=== PATIENT | male | born 1980 | race Caucasian/White ===

== ENCOUNTER 2022-05-17 15:37 | Inpatient (IN) ==
[2022-05-17] MEDS ORDERED: IOPAMIDOL 100 ML BOTTLE IV ONE (15:38)
[2022-05-17] MEDS ORDERED: 0.9 % SODIUM CHLORIDE 1,000 ML IV ONE (16:03)
--- NOTE | 2022-05-17 16:18 | Emergency Department Note ---
Skin/Abscess/FB HPI General Chief complaint: Skin/Abscess/Rash Stated complaint: Ultrasound Time Seen by Provider: 05/17/22 15:55 Source: patient Mode of arrival: ambulatory Limitations: no limitations History of Present Illness HPI Narrative: Thomas Brown is a 41-year-old male who presents to the emergency department at the direction of [facility] for evaluation of "a cyst" on his scrotum. The patient reports he noticed an area of tenderness, swelling, and induration about the size of a golf ball yesterday. He reports this woke him from sleep and made returning to sleep difficult due to pain. He denies fevers, however states he felt chilled overnight last night. No sweating. No fatigue or malaise. P atient denies recent trauma to the area, surgery, history of diabetes. He reports he is awaiting his upcoming gastric bypass surgery. He denies all other acute complaints at this time. Related Data Previous Rx's Medication Instructions Recorded CPAP supplies-mask, hosing, #1 ea 12/06/21 headgear methylphenidate HCl 20 mg tablet 40 mg PO QAM #60 tabs 04/01/22 methylphenidate HCl 40 mg 40 mg PO QAM #30 caps 05/01/22 capsule,extended release (40-60) sprinkle Allergies Allergy/AdvReac Type Severity Reaction Status Date / Time morphine Allergy Severe Drastic Verified 05/17/22 15:42 lowering of oxygen level NO NSAIDS AdvReac upcoming Uncoded 05/17/22 15:16 surgery Review of Systems ROS ROS Narrative: A comprehensive review of systems is obtained and found to be negative, except as per HPI. PFSH Narrative Patient History Narrative: Narrative: Medical/Surgical/Family History All Active Problems (Updated 05/17/22 @ 20:41 by Manuela Aragon PA-C) Seasonal allergies (Chronic) Obese (Chronic) Back problem (Chronic) Morbid obesity with BMI of 50.0-59.9, adult (Chronic) Chronic low back pain (Chronic) Spinal stenosis, lumbar region without neurogenic claudication (Chronic) Chronic pain (Chronic) Spondylolisthesis, lumbar region (Chronic) Spondylolysis, lumbar region (Chronic) Right sided sciatica (Chronic) Leg pain (Chronic) Craniosynostoses (Chronic) Environmental allergies (Chronic) Hematuria (Chronic) Hypothyroidism (Chronic) Migraine (Chronic) Other low back pain (Chronic) Other chronic pain (Chronic) Sleep apnea (Chronic) ADHD (Acute) Lumbar radiculopathy (Chronic) Disability (Acute) Onychomycosis (Acute) Callus of foot (Acute) Pre-op examination (Acute) Cellulitis, scrotum (Acute) 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) Medical History ADHD Back problem Callus of foot Chronic low back pain Right-Sided Chronic pain Craniosynostoses Disability Environmental allergies Hematuria Hypothyroidism Leg pain Right Lumbar radiculopathy Migraine Morbid obesity with BMI of 50.0-59.9, adult Obese Onychomycosis Other chronic pain Other low back pain Pre-op examination Right sided sciatica Seasonal allergies Sleep apnea Spinal stenosis, lumbar region without neurogenic claudication Spondylolisthesis, lumbar region Spondylolysis, lumbar region Surgical History History of cranial surgery x4 History of hernia repair (~2012) History of removal of cyst (~2003) Family History Mother Hypertension Arthritis Father Cancer Family/Other Cancer Grandparent Brother Chronic pain Alcohol abuse Social History Smoking Status: Never smoker Alcohol Intake Frequency: a few times a month Substance Use: does not use Exam Narrative Narrative: General: Alert, pleasant, conversant, NAD HEENT: Mask in place per COVID protocol, EOMI, PERRL, anicteric sclerae Chest/respiratory: Symmetric chest wall expansion, adequate tidal volume and respiratory effort, speaks in complete paragraphs without difficulty CV: Cap refill less than 2 seconds; palpable peripheral pulses Abdomen/GI: Soft, protuberant, NT/ND Extremities/MSK: MAEW, normal gait Skin: Normal warm and dry, no jaundice Urogenital: No apparent lesions, at the perineum and scrotum, there is an area of erythema, induration, swelling, and tenderness measuring approximately 4.5 cm x 12 cm progressing from the perineum into the scrotum General Limitations: no limitations Course Vital Signs Vital signs: Vital Signs Temperature 98.6 F 05/17/22 15:39 Pulse Rate 95 H 05/17/22 15:39 Respiratory Rate 16 05/17/22 15:39 Blood Pressure 160/107 05/17/22 15:39 Pulse Oximetry (%) 96 05/17/22 15:39 Oxygen Delivery Method 05/17/22 15:39 Temperature 98.6 F 05/17/22 15:39 Pulse Rate 89 05/17/22 20:01 Respiratory Rate 18 05/17/22 18:39 Blood Pressure 128/57 05/17/22 20:01 Pulse Oximetry (%) 99 05/17/22 20:01 Oxygen Delivery Method 05/17/22 18:39 MDM MDM Narrative Medical decision making narrative: Thomas Brown is a 41-year-old male who presents to the emergency department for evaluation of a "cyst" that he reports is roughly the size of a golf ball when he noticed it yesterday. Pain awoke him from sleep overnight and he felt chilled, though he had no measured fevers. He was seen today in urgent care and provider Lynda Villa sent him to the emergency department for further evaluation and management. On exam, there is an area of erythema, induration, swelling, and tenderness that is considerably larger than a roughly 3.5 cm diameter golf ball, at approximately 4.5 cm x 12 cm. Given location of this area of swelling, tenderness, and pain that is significantly larger than what was originally noticed, along with the patient's risk factor of obesity, work-up is initiated for sepsis and Marnie's gangrene. IV fluids are initiated early as contrast CT is required to evaluate the soft tissues of the pelvis. Labs are reassuring. White blood cell count is 10.2, H&H 16.2 and 49.9, respec tively, platelet count 303. Lactic acid is within reference range at 0.7. Sodium is 140, potassium 4.1, chloride is 103, total CO2 is 27.0, BUN is 17, creatinine is 0.8 and glucose is 99. Results of imaging were delayed for a prolonged period of time, and as such IV antibiotics were started prior to return of these results, following a discussion with the patient of the risks and benefits of IV antibiotic therapy versus waiting to initiate antibiotic therapy. This included vancomycin 2 g and 900 mg clindamycin, administered IV. Consultation was sought with urology at approximately; Dr Trevino of the urology service was kind enough to return my call and allow me to consult with him throughout the patient's time in the emergency department. Upon return of imaging, Dr. Trevino comes into the emergency department to evaluate the patient and agrees with the assessment that the patient needs to be treated presumptively for Marnie's gangrene. While Dr. Trevino is in the emergency department, Dr Phelan from [facility] returns my call to discuss the patient's imaging exam at 1943. The first set of images have an impression stating "partially visualized soft tissue thickening in the perineum and extends to the scrotal wall without fluid collection may represent cellulitis. No acute intra-abdominal or pelvic abnormality." The second read with additional images included have an impression that reads "a small fluid collection in the left perineum measuring 7.3 x 2.7 x 2.3 cm (AP by transverse by coronal dimensions), extends to the left scrotal wall and contains a focus of gas consistent with phlegmon/early abscess formation." Following his examination of the patient, Dr. Trevino and I discussed the patient's case at length. It is agreed that admission for IV antibiotics is the best course of action for this patient. This is additionally discussed with the patient, including risks and benefits of hospitalization, IV antibiotic therapy, and outpatient therapy. Using a shared decision-making process, it is agreed that the patient will be admitted by the hospitalist service with Dr. Trevino of the urology service consulting. Dr. Steve of the hospitalist service accepts the patient for admission at 2019. Sepsis Sepsis Identified: No Differential Diagnosis Differential Diagnosis: cellulitis, abscess, Marnie's gangrene Lab Data Lab results reviewed: Yes I reviewed the patient's lab results. Result diagrams: 05/17/22 16:20 Labs: Lab Results 05/17/22 05/17/22 05/17/22 Range/Units 16:20 16:21 16:21 WBC 10.2 (4.5-11.0) K/mcL RBC 5.57 (4.63-6.08) M/mcL Hgb 16.2 (13.7-17.5) g/dL Hct 49.9 (40.1-51.0) % POC Hct 50.0 (41-55) MCV 89.6 (80.0-100.0) fL MCH 29.1 (26.0-34.0) pg MCHC 32.5 (31.0-36.0) g/dL RDW 13.3 (11.5-14.5) % Plt Count 303 (140-440) K/mcL MPV 10.3 (8.8-12.5) fL Immature Gran % (Auto) 0.2 (0.0-0.5) % Neut % (Auto) 66.3 (38.0-78.0) % Lymph % (Auto) 24.6 (15.5-49.0) % [place] % (Auto) 6.7 (1.0-12.0) % Eos % (Auto) 1.6 (0.0-7.0) % Baso % (Auto) 0.6 (0.0-2.0) % Lymph # (Auto) 2.51 (1.50-4.80) K/mcL [place] # (Auto) 0.68 (0.10-0.90) K/mcL Eos # (Auto) 0.16 (0.00-0.70) K/mcL Baso # (Auto) 0.06 (0.00-0.30) K/mcL Immature Gran # 0.02 (0.00-0.05) K/mcl Absolute Neutrophils 6.78 (1.80-8.00) K/mcL POC VBG pH 7.39 (7.32-7.42) POC VBG pCO2 at Temp 47.9 (41-51) POC VBG pO2 22 L (25-40) POC VBG HCO3 28.8 H (24-28) POC VBG Total CO2 30.0 H (25-29) POC Venous O2 Sat 36.0 L (40-70) POC VBG Base Excess 4.0 H* (-2-2) VBG Lactic Acid 0.7 (0.5-2) POC Sodium 140 (133-145) POC Potassium 4.1 (3.3-5.1) POC Chloride 103 (96-108) POC Total CO2 27.0 (22-30) POC BUN 17 (6-20) POC Creatinine 0.8 (0.6-1.2) POC Glucose 99 (70-105) POC WB Ioniz Calcium 1.15 L (1.16-1.32) Radiology Data Radiology results reviewed: Yes I reviewed the patient's radiology results. Radiology results narrative: Extensive consultation with radiology was undertaken on behalf of this patient, throughout the course of his care. [facility] provides the following impression: A small fluid collection in the left perineum measuring 7.3 x 2.7 x 2.3 cm (AP by TRV by CC) extends to the left scrotal wall and contains a focus of gas consistent with phlegmon/early abscess formation. 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
[2022-05-17 16:26] LABS: POC Calcium, Ionized 1.15 (1.16-1.32); POC Creatinine 0.8 (0.6-1.2); POC Potassium 4.1 (3.3-5.1)
[2022-05-17 17:33] LABS: Basophils # (Auto) 0.06 K/mcL (0.00-0.30); Basophils % (Auto) 0.6 % (0.0-2.0); Eosinophils # (Auto) 0.16 K/mcL (0.00-0.70); Eosinophils % (Auto) 1.6 % (0.0-7.0); Hematocrit 49.9 % (40.1-51.0); Hemoglobin 16.2 g/dL (13.7-17.5); Lymphocytes # (Auto) 2.51 K/mcL (1.50-4.80); Lymphocytes % (Auto) 24.6 % (15.5-49.0); Mean Cell Volume 89.6 fL (80.0-100.0); Mean Corpuscular HGB Conc 32.5 g/dL (31.0-36.0); Mean Platelet Volume 10.3 fL (8.8-12.5); Monocytes # (Auto) 0.68 K/mcL (0.10-0.90); Monocytes % (Auto) 6.7 % (1.0-12.0); Neutrophils % (Auto) 66.3 % (38.0-78.0); Platelet Count 303 K/mcL (140-440); RBC 5.57 M/mcL (4.63-6.08); Red Cell Distribution Width 13.3 % (11.5-14.5); WBC 10.2 K/mcL (4.5-11.0)
[2022-05-17] MEDS ORDERED: VANCOMYCIN 2,000 MG in 0.9 % SODIUM CHLORIDE 500 ML IV ONE (18:01)
[2022-05-17] MEDS ORDERED: CLINDAMYCIN IN 0.9 % SOD CHLOR 900 MG/50 ML BAG IV ONE (18:02)
--- NOTE | 2022-05-17 20:18 | Urology Consult Note ---
HPI Date of Consult Consult Date: 05/17/22 Primary Care Provider: Siddharth Muhammad MD Consult Narrative Patient Information: Note initiated : 05/17/22 at 8:04 pm Service Date, if different from initiated Date: [] Patient: Thomas Brown 41 y/o M admitted on for Ultrasound. Chief Complaint: [] Scrotal swelling and pain Thomas Brown is a 41-year-old male who presented to the emergency room after being seen in the urgent care earlier today. He has been evaluated by the emergency room medical staff and urologic consultation has been requested. He is accompanied this evening by his . Patient states that last evening he noticed some swelling of the posterior left scrotum. He states the swelling was separate from the testicle and appeared to be in the skin of the scrotum. He did have some mild chills over the last couple of days, but denies any fevers. He has had no nausea, vomiting, abdominal pain, change in bowels (had normal bowel movement yesterday), difficulty with urination, dysuria or hematuria. Patient states he otherwise feels quite well and in his normal state of health. He states the swelling has slightly increased from yesterday. He has had no prior similar episodes. Apparently, at the urgent care they had recommended doing an ultrasound on Thursday, patient decided to come to the emergency room to see if he can get further evaluation. He has had blood work and a CT scan completed. Patient states he is scheduled for bariatric surgery in approximately 1 month cc:: CC: Constitutional Constitutional: Present as per HPI and chills; Absent anorexia, fatigue, fever(s), headache(s) or weakness EENT Eyes: Absent change in vision Ears: Absent decreased hearing Nose, mouth and throat: Absent throat swelling Cardiovascular Cardiovascular: Absent chest pain, diaphoresis or dyspnea Respiratory Respiratory: Absent cough or dyspnea Gastrointestinal Gastrointestinal: Present as per HPI; Absent abdominal pain, constipation, nausea or vomiting Genitourinary Genitourinary: as per HPI Musculoskeletal Musculoskeletal: Absent muscle weakness Integumentary Integumentary: Absent rash Neurological Neurological: Absent headache(s) Endocrine Endocrine: Absent fatigue, polyphagia or polyuria Hematologic/Lymphatic Hematologic/Lymphatic: Absent easy bleeding or easy bruising PFSH PFSH All Active Problems (Updated 05/17/22 @ 20:15 by Ronny Trevino MD) Cellulitis, scrotum (Acute) Seasonal allergies (Chronic) Obese (Chronic) Back problem (Chronic) Morbid obesity with BMI of 50.0-59.9, adult (Chronic) Chronic low back pain (Chronic) Spinal stenosis, lumbar region without neurogenic claudication (Chronic) Chronic pain (Chronic) Spondylolisthesis, lumbar region (Chronic) Spondylolysis, lumbar region (Chronic) Right sided sciatica (Chronic) Leg pain (Chronic) Craniosynostoses (Chronic) Environmental allergies (Chronic) Hematuria (Chronic) Hypothyroidism (Chronic) Migraine (Chronic) Other low back pain (Chronic) Other chronic pain (Chronic) Sleep apnea (Chronic) ADHD (Acute) Lumbar radiculopathy (Chronic) Disability (Acute) Onychomycosis (Acute) Callus of foot (Acute) Pre-op examination (Acute) Medical History ADHD Back problem Callus of foot Chronic low back pain Right-Sided Chronic pain Craniosynostoses Disability Environmental allergies Hematuria Hypothyroidism Leg pain Right Lumbar radiculopathy Migraine Morbid obesity with BMI of 50.0-59.9, adult Obese Onychomycosis Other chronic pain Other low back pain Pre-op examination Right sided sciatica Seasonal allergies Sleep apnea Spinal stenosis, lumbar region without neurogenic claudication Spondylolisthesis, lumbar region Spondylolysis, lumbar region Surgical History History of cranial surgery x4 History of hernia repair (~2012) History of removal of cyst (~2003) Family History Mother Hypertension Arthritis Father Cancer Family/Other Cancer Grandparent Brother Chronic pain Alcohol abuse Social History marital status: education level: college occupational status: disabled occupation: [employer] smoking status: Never smoker alcohol intake frequency: a few times a month substance use type: does not use MEDS/ALLERGIES Home Medications and Allergies Home Medications Medication Instructions Recorded Confirmed Type CPAP supplies-mask, hosing, #1 ea 12/06/21 05/17/22 Rx headgear methylphenidate HCl 20 mg tablet 40 mg PO QAM #60 tabs 04/01/22 05/17/22 Rx methylphenidate HCl 40 mg 40 mg PO QAM #30 caps 05/01/22 05/17/22 Rx capsule,extended release (40-60) sprinkle Allergies Allergy/AdvReac Type Severity Reaction Status Date / Time morphine Allergy Severe Drastic Verified 05/17/22 15:42 lowering of oxygen level NO NSAIDS AdvReac upcoming Uncoded 05/17/22 15:16 surgery Physical Examination Vital Signs Vital signs: Temp Pulse Resp BP Pulse Ox O2 Del Method 98.6 F 86 18 117/74 96 05/17/22 15:39 05/17/22 19:31 05/17/22 18:39 05/17/22 19:31 05/17/22 19:31 05/17/22 18:39 General physical appearance General physical exam: well developed, well nourished, no distress and obese Eyes Eye exam: PERRL and normal ocular movement ENT ENT exam: negative nasal discharge Head Head exam IM: Present atraumatic Neck Neck exam: no lymphadenopathy Respiratory Respiratory exam: normal respiratory effort Abdomen Abdomen: Present soft, non tender and masses; Absent guarding, rigid or rebound Hernia: Present none Genitourinary Genitourinary (Male): Present normal penis with no external lesions, testicles present and testicles non-tender Genitourinary: scrotal mass/hydrocele: left (Induration of the posterior scrotal wall, erythema, no fluctuance, no drainage ) Integumentary Integumentary: Present no rash Neurologic Neurologic: Present normal coordination Musculoskeletal Musculoskeletal: Present normal posture Psychiatric Psychiatric: Present oriented to time, oriented to person, oriented to place and speech is normal Results Labs Result diagrams: 05/17/22 16:20 Labs: Abnormal lab results 05/17/22 05/17/22 Range/Units 16:21 16:21 POC VBG pO2 22 L (25-40) POC VBG HCO3 28.8 H (24-28) POC VBG Total CO2 30.0 H (25-29) POC Venous O2 Sat 36.0 L (40-70) POC VBG Base Excess 4.0 H* (-2-2) POC WB Ioniz Calcium 1.15 L (1.16-1.32) All other labs normal. Imaging CT scan - abdomen: report reviewed and image reviewed US - pelvic: report reviewed and image reviewed A/P Assessment and plan (1) Morbid obesity with BMI of 50.0-59.9, adult: Status: Chronic (2) Cellulitis, scrotum: Status: Acute Narrative A/P Narrative: 41-year-old obese male with left-sided scrotal cellulitis and possible early phlegmon formation. There is no palpable area of fluctuance. Patient's vital signs are stable, and laboratory work looks good. It Recommendation to admit the patient treated with IV antibiotics, monitor vital signs and laboratory work, serial exam. I will plan to see the patient in the morning to reevaluate the need for surgery. I had an extended conversation with both the patient and his indicating to them the seriousness of the patient's condition but at this time find no indication for surgical intervention. I will continue to follow as clinically indicated during this hospitalization. I appreciate the opportunity to participate in the patient's care. Time Spent With Patient Time: Total time spent is greater than 50% in coordination of care (as documented) at patient's floor/unit and/or counseling patient:
--- NOTE | 2022-05-17 20:38 | Internal Med History&Physical ---
HPI History of Present Illness Patient information: Note initiated : 05/17/22 at 8:32 pm Service Date, if different from initiated Date: [] Patient: Thomas Brown a 41 y/o M admitted on for Ultrasound. Chief Complaint: [] History of present illness: Mr. Brown is a 41 year old M Presents the ED with scrotal pain and swelling. Patient states that he felt a mass in the left side of his scrotum several days ago that has enlarged and become significantly tender. Even just today says it is a large difference in size from this morning to this evening. He went into minor care but they are unable to do any imaging and thus came over to ED. Patient denies any trauma or injury to the region. Imaging showed appear to be scrotal abscess cellulitis think in appearance of necrotizing fasciitis in the perineum. Case discussed with Dr. Trevino who examined the patient. Patient states he has had significant chills the past 3 nights which is quite unusual for him. He complains of headache. No nausea vomiting. Labs are surprisingly unremarkable at this time. Patient is scheduled to have bariatric surgery in the next month or so. Review of Systems: Pertinent positives as above. Denies fever//nausea/vomiting/chest or abdominal pain/cough/dyspnea/diarrhea. Remaining 10 point review of system reviewed negative PFSH PFSH All Active Problems (Updated 05/17/22 @ 20:41 by Manuela Aragon PA-C) Seasonal allergies (Chronic) Obese (Chronic) Back problem (Chronic) Morbid obesity with BMI of 50.0-59.9, adult (Chronic) Chronic low back pain (Chronic) Spinal stenosis, lumbar region without neurogenic claudication (Chronic) Chronic pain (Chronic) Spondylolisthesis, lumbar region (Chronic) Spondylolysis, lumbar region (Chronic) Right sided sciatica (Chronic) Leg pain (Chronic) Craniosynostoses (Chronic) Environmental allergies (Chronic) Hematuria (Chronic) Hypothyroidism (Chronic) Migraine (Chronic) Other low back pain (Chronic) Other chronic pain (Chronic) Sleep apnea (Chronic) ADHD (Acute) Lumbar radiculopathy (Chronic) Disability (Acute) Onychomycosis (Acute) Callus of foot (Acute) Pre-op examination (Acute) Cellulitis, scrotum (Acute) 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) Medical History ADHD Back problem Callus of foot Chronic low back pain Right-Sided Chronic pain Craniosynostoses Disability Environmental allergies Hematuria Hypothyroidism Leg pain Right Lumbar radiculopathy Migraine Morbid obesity with BMI of 50.0-59.9, adult Obese Onychomycosis Other chronic pain Other low back pain Pre-op examination Right sided sciatica Seasonal allergies Sleep apnea Spinal stenosis, lumbar region without neurogenic claudication Spondylolisthesis, lumbar region Spondylolysis, lumbar region Surgical History History of cranial surgery x4 History of hernia repair (~2012) History of removal of cyst (~2003) Family History Mother Hypertension Arthritis Father Cancer Family/Other Cancer Grandparent Brother Chronic pain Alcohol abuse Social History marital status: education level: college occupational status: disabled occupation: [employer] smoking status: Never smoker alcohol intake frequency: a few times a month substance use type: does not use MEDS/ALLERGIES Home Medications and Allergies Home Medications Medication Instructions Recorded Confirmed Type CPAP supplies-mask, hosing, #1 ea 12/06/21 05/17/22 Rx headgear methylphenidate HCl 20 mg tablet 40 mg PO QAM #60 tabs 04/01/22 05/17/22 Rx methylphenidate HCl 40 mg 40 mg PO QAM #30 caps 05/01/22 05/17/22 Rx capsule,extended release (40-60) sprinkle Allergies Allergy/AdvReac Type Severity Reaction Status Date / Time morphine Allergy Severe Drastic Verified 05/17/22 15:42 lowering of oxygen level NO NSAIDS AdvReac upcoming Uncoded 05/17/22 15:16 surgery EXAM Constitutional Vitals: Temp Pulse Resp BP Pulse Ox O2 Del Method 98.6 F 93 H 18 146/60 97 05/17/22 15:39 05/17/22 20:16 05/17/22 18:39 05/17/22 20:16 05/17/22 20:16 05/17/22 18:39 Exam: General: Alert, Awake, No acute Distress, obese Eyes/N/T: EOMI, PERRL, Head/Neck: neck supple, normocephalic atraumatic CV: RRR, No murmurs, normal s1/s2 Pulm: Clear b/l, no wheezing/rhonchi/rales Abd: soft, nontender, +BS x4 Ext: no clubbing/cyanosis/edema : scrotal swelling/erythema/induration/TTP left side Neuro: Alert, no focal deficits, moves all extremities, CN 2-12 grossly intact, sensations intact b/l upper/lower Skin: warm/dry DATA Data Completed and Pending Labs: Labs from last 24 hours 05/17/22 05/17/22 05/17/22 16:21 16:21 16:20 WBC 10.2 RBC 5.57 Hgb 16.2 Hct 49.9 POC Hct 50.0 MCV 89.6 MCH 29.1 MCHC 32.5 RDW 13.3 Plt Count 303 MPV 10.3 Immature Gran % (Auto) 0.2 Neut % (Auto) 66.3 Lymph % (Auto) 24.6 [place] % (Auto) 6.7 Eos % (Auto) 1.6 Baso % (Auto) 0.6 Lymph # (Auto) 2.51 [place] # (Auto) 0.68 Eos # (Auto) 0.16 Baso # (Auto) 0.06 Immature Gran # 0.02 Absolute Neutrophils 6.78 POC VBG pH 7.39 POC VBG pCO2 at Temp 47.9 POC VBG pO2 22 L POC VBG HCO3 28.8 H POC VBG Total CO2 30.0 H POC Venous O2 Sat 36.0 L POC VBG Base Excess 4.0 H* VBG Lactic Acid 0.7 POC Sodium 140 POC Potassium 4.1 POC Chloride 103 POC Total CO2 27.0 POC BUN 17 POC Creatinine 0.8 POC Glucose 99 POC WB Ioniz Calcium 1.15 L A/P Narrative A/P Narrative: A: *Scrotal abscess and early Marnie's: * *Morbid obesity: Patient scheduled for bariatric surgery in the next couple months *TATUM on CPAP: * P: -merrem/vanco/clinda, mrsa screen -BC pending -monitor vitals/labs -Dr. Trevino following - -home cpap - -ppx: heparin Time Spent With Patient Time: Total time spent is greater than 50% in coordination of care (as documented) at patient's floor/unit and/or counseling patient: Total time spent with greater than 50% in coordination of care (as documented) at patient's floor/unit and/or counseling patient:: 50 - 70 minutes
[2022-05-17] MEDS ORDERED: POTASSIUM CHLORIDE 20 MEQ TABLET PO PRN ×2 (22:11)
[2022-05-17] MEDS ORDERED: VANCOMYCIN PER PHARMACY IV ONE (22:11)
[2022-05-17] MEDS ORDERED: ONDANSETRON 4 MG/2 ML VIAL IV PRN (22:11)
[2022-05-17] MEDS ORDERED: MAGNESIUM SULFATE 2 GM/50 ML BAG IV PRN (22:11)
[2022-05-17] MEDS ORDERED: POLYETHYLENE GLYCOL 3350 17 GM PACKET PO PRN (22:11)
[2022-05-17] MEDS ORDERED: POTASSIUM CHLORIDE 40 MEQ in DEXTROSE 5% IN WATER 500 ML IV PRN (22:11)
[2022-05-17] MEDS ORDERED: ACETAMINOPHEN 325 MG TABLET PO PRN (22:11)
[2022-05-17] MEDS ORDERED: SENNOSIDES 1 TABLET PO PRN (22:11)
[2022-05-17] MEDS: DOCUSATE SODIUM 100 MG CAPSULE PO SCH (23:45)
[2022-05-17] MEDS: 0.9 % SODIUM CHLORIDE 10 ML SYRINGE IV SCH (23:46)
[2022-05-17] MEDS ORDERED: HEPARIN 5,000 UNIT/ML VIAL ONE (23:46)
[2022-05-17] MEDS: CLINDAMYCIN IN 0.9 % SOD CHLOR 600 MG/50 ML BAG IV SCH (23:48)
[2022-05-18] MEDS: HEPARIN 5,000 UNIT/ML VIAL SQ SCH ×3 (00:40→21:48)
[2022-05-18] MEDS: MEROPENEM 1 GM in 0.9 % SODIUM CHLORIDE 50 ML IV SCH ×4 (00:41→21:49)
[2022-05-18] MEDS ORDERED: ACETAMINOPHEN 325 MG TABLET PO ONE (04:45)
[2022-05-18] MEDS: 0.9 % SODIUM CHLORIDE 10 ML SYRINGE IV SCH ×3 (06:14→21:50)
[2022-05-18 06:27] LABS: Basophils # (Auto) 0.04 K/mcL (0.00-0.30); Basophils % (Auto) 0.4 % (0.0-2.0); Eosinophils # (Auto) 0.19 K/mcL (0.00-0.70); Eosinophils % (Auto) 1.8 % (0.0-7.0); Hematocrit 46.5 % (40.1-51.0); Lymphocytes % (Auto) 25.2 % (15.5-49.0); Mean Cell Volume 90.3 fL (80.0-100.0); Mean Corpuscular HGB Conc 32.3 g/dL (31.0-36.0); Mean Platelet Volume 9.9 fL (8.8-12.5); Monocytes # (Auto) 0.88 K/mcL (0.10-0.90); Monocytes % (Auto) 8.5 % (1.0-12.0); Neutrophils % (Auto) 63.7 % (38.0-78.0); Platelet Count 276 K/mcL (140-440); RBC 5.15 M/mcL (4.63-6.08); Red Cell Distribution Width 13.2 % (11.5-14.5); WBC 10.3 K/mcL (4.5-11.0)
[2022-05-18 06:54] LABS: ALT/SGPT 9 U/L (<40); AST/SGOT 10 U/L (<40); Albumin 3.4 gm/dL (3.2-5.2); Alkaline Phosphatase 80 U/L (39-117); Bilirubin,Direct < 0.2 mg/dL (0-0.3); Bilirubin,Total 0.6 mg/dL (0.1-1.0); Blood Urea Nitrogen 13 mg/dL (6-20); Calcium 8.5 mg/dL (8.6-10.4); Carbon Dioxide 27 mmol/L (22-30); Chloride 102 mmol/L (96-108); Globulin 3.4 gm/dL (2.2-3.7); Glomerular Filtration Rate 109; Glucose 99 mg/dL (70-105); Lactate Dehydrogenase 165 U/L (135-225); Phosphorous 3.1 mg/dL (2.5-4.5); Triglycerides 130 mg/dL (<150); Uric Acid 5.3 mg/dL (2.5-8.0)
[2022-05-18] MEDS: CLINDAMYCIN IN 0.9 % SOD CHLOR 600 MG/50 ML BAG IV SCH ×3 (07:05→22:36)
--- NOTE | 2022-05-18 07:43 | Cat Scan Report ---
CLINICAL INFORMATION: Scrotal inflammation and pain COMPARISON: None. TECHNIQUE: Following enteric contrast, 80 cc of Isovue-370 were injected intravenously, and 60 seconds later, 0.625 mm helical slices were obtained from the mid heart through the subtrochanteric regions. Following reconstruction, 2.5 mm sagittal, coronal and axial reformatted images were processed and reviewed at bone, lung and soft tissue windows. Five minutes later, 0.625 mm helical slices were obtained from the mid heart through the kidneys and viewed at soft tissue windows.The exam was performed using radiation dose optimization techniques including, but not limited to, automated exposure control, adjustment of the mA and/or kV according to patient size and use of iterative reconstruction technique. FINDINGS: The lung bases are clear. No effusions. The visualized heart is grossly normal. Abdominal images show the gallbladder and bile ducts, liver, both kidneys, adrenal glands, spleen, pancreas and aorta, including aortic branches, are normal in size, configuration and attenuation without focal lesion. There is no free air, free fluid or adenopathy. Pelvic images show normal urinary bladder, prostate and seminal vesicles.. The stomach, small bowel, appendix region and large bowel are grossly normal. 5 x 2 cm abscess in the superior left scrotum with a very tiny air bubble in the nondependent region. Moderate inflammation is seen throughout the remaining scrotal soft tissues Bone windows bilateral L5-S1 spondylolysis no evidence of spondylolisthesis. Large broad disc spur complex results in severe bilateral IV foraminal narrowing and exiting L5 nerve root impingement. IMPRESSION: 5 cm abscess in the inferior left scrotal soft tissues with associated inflammation throughout the remainder of both inferior scrotal regions. Chronic bilateral L5-S1 spondylolysis no evidence of spondylolisthesis broad disc protrusion results in severe bilateral IV foraminal narrowing exiting L5 nerve root impingement. Interpreted and Authenticated by: Samy Chanel 05/18/22
[2022-05-18] MEDS ORDERED: VANCOMYCIN PER PHARMACY IV SCH (08:00)
[2022-05-18] MEDS: DOCUSATE SODIUM 100 MG CAPSULE PO SCH ×2 (08:36→21:48)
--- NOTE | 2022-05-18 08:38 | Internal Med Progress Note ---
SUBJECTIVE Subjective Patient information: Note initiated : 05/18/22 at 8:35 am Service Date, if different from initiated Date: [] Patient: Thomas Brown a 41 y/o M admitted on 05/17/22 for Ultrasound. Chief Complaint: [] Interval history: History of present illness: Mr. Brown is a 41 year old M Presents the ED with scrotal pain and swelling. Patient states that he felt a mass in the left side of his scrotum several days ago that has enlarged and become significantly tender. Even just today says it is a large difference in size from this morning to this evening. He went into minor care but they are unable to do any imaging and thus came over to ED. Patient denies any trauma or injury to the region. Imaging showed appear to be scrotal abscess cellulitis think in appearance of necrotizing fasciitis in the perineum. Case discussed with Dr. Trevino who examined the patient. Patient states he has had significant chills the past 3 nights which is quite unusual for him. He complains of headache. No nausea vomiting. Labs are surprisingly unremarkable at this time. Patient is scheduled to have bariatric surgery in the next month or so. 05/18 Patient slept okay no overnight events. Patient feels pain and discomfort about the same yesterday, he does feel like swelling has enlarged. Review of Systems: denies headache/fever/chills/nausea/vomiting/chest or abdominal pain/cough/dyspnea/diarrhea. Otherwise see above. Constitutional Vitals: Vital Signs Temp Pulse Resp BP Pulse Ox O2 Del Method 96.8 F L 80 18 146/96 96 05/18/22 08:00 05/18/22 08:00 05/18/22 08:00 05/18/22 08:00 05/18/22 08:00 05/18/22 08:00 Period Temp Pulse Resp BP Sys/Cheney Pulse Ox O2 Del Method O2 Flow Rate Last 24 Hr 96.8 F-98.6 F 71-96 16-18 117-160/57-117 94-99 Room Air-Room Air, CPAP Intake and Output 05/17/22 05/18/22 05/18/22 19:59 03:59 11:59 Intake Total 50 50 2750 Output Total 850 Balance 50 50 1900 Weight 174.179 kg 179.441 kg Intake & Output: Intake & Output 01/11/3005/18/22 05/18/22 19:59 03:59 11:59 Intake Total 50 50 2750 Output Total 850 Balance 50 50 1900 Weight 174.179 kg 179.441 kg Intake: IV 50 50 1550 Sodium Chloride 0.9% 1,000 ml @ 1000 Wide Open IV BOLUS ONE Rx#: [id number] Merrem 1 gm In Sodium Chloride 50 0.9% 50 ml @ 100 mls/hr IV Q8H [facility] Rx#:[id number] Vancomycin 2,000 mg In Sodium 500 Chloride 0.9% 500 ml @ 250 mls/ hr IV ONCE ONE Rx#:[id number] Oral 1200 Output: Void Amount 850 Other: Urine Appearance Clear Clear Urine Color Dark Yellow Yellow Urine Odor Normal Normal Exam: General: Alert, Awake, No acute Distress, obese Eyes/N/T: EOMI, Head/Neck: neck supple, CV: RRR, No murmurs, Pulm: Clear b/l, no wheezing/rhonchi/rales Abd: soft, nontender, +BS x4 Ext: no clubbing/cyanosis/edema : Neuro: Alert, no focal deficits, moves all extremities, Skin: warm/dry OBJ DATA Labs CBC & Chem 7: 05/18/22 05:16 05/18/22 05:16 Labs: Abnormal Lab Results 05/18/22 05/17/22 05/17/22 05:16 16:21 16:21 POC VBG pO2 22 L POC VBG HCO3 28.8 H POC VBG Total CO2 30.0 H POC Venous O2 Sat 36.0 L POC VBG Base Excess 4.0 H* Calcium 8.5 L POC WB Ioniz Calcium 1.15 L Meds: Medications Acetaminophen (Acetaminophen 325 Mg Tablet) 650 mg PO Q6HP PRN; Protocol PRN Reason: Per Pain Protocol/Fever > 101 Last Admin: 05/18/22 04:47 Dose: 650 mg Docusate Sodium (Docusate Sodium 100 Mg Capsule) 100 mg PO BID [facility] Last Admin: 05/17/22 23:45 Dose: Not Given Heparin Sodium (Porcine) (Heparin 5,000 Unit/Ml Vial) 5,000 unit SQ Q12 [facility] Last Admin: 05/18/22 00:40 Dose: 5,000 unit Potassium Chloride 40 meq/ (Dextrose) 520 mls @ 130 mls/hr IV UD PRN PRN Reason: Potassium < 3 Magnesium Sulfate (Magnesium Sulfate) 2 gm in 50 mls @ 50 mls/hr IV UD PRN PRN Reason: Magnesium </= 1.6 Meropenem 1 gm/ Sodium (Chloride) 50 mls @ 100 mls/hr IV Q8H [facility]; Protocol Last Admin: 05/18/22 07:37 Dose: 100 mls/hr CLINDAMYCIN IN 0.9 % SOD CHLOR (Clindamycin 600 Mg/50 Ml-Ns) 600 mg in 50 mls @ 100 mls/hr IV Q8H [facility] Last Infusion: 05/18/22 07:38 Dose: Infused Vancomycin HCl 1,500 mg/ (Sodium Chloride) 500 mls @ 333.3 mls/hr IV Q8H [facility] Stop: 05/18/22 17:31 Ondansetron HCl (Ondansetron 4 Mg/2 Ml Vial) 4 mg IV Q4HP PRN PRN Reason: Nausea And Vomiting Polyethylene Glycol (Polyethylene Glycol 3350 17 Gm Packet) 17 gm PO DAILYP PRN PRN Reason: Constipation Potassium Chloride (Potassium Chloride 20 Meq Tablet) 40 meq PO UD PRN PRN Reason: Potssium is 3-3.5 Potassium Chloride (Potassium Chloride 20 Meq Tablet) 40 meq PO UD PRN PRN Reason: Potassium < 3 Senna (Sennosides 1 Tablet) 2 tab PO DAILYP PRN PRN Reason: Constipation Sodium Chloride (0.9 % Sodium Chloride 10 Ml Syringe) 10 ml IV Q8 [facility] Last Admin: 05/18/22 06:14 Dose: 10 ml Vancomycin HCl (Vancomycin Per Pharmacy) 1 order IV UD [facility]; Protocol Stop: 05/18/22 19:00 A/P Narrative A/P Narrative: A: *Scrotal abscess/cellulitis and early ?Marnie's: * *Morbid obesity: BMI 52, Patient scheduled for bariatric surgery in the next couple months *TATUM on CPAP: P: -merrem/vanco/clinda, mrsa screen neg -BC pending -monitor vitals/labs -Dr. Trevino following -home cpap -ppx: heparin Time Spent With Patient Time: Total time spent is greater than 50% in coordination of care (as documented) at patient's floor/unit and/or counseling patient: Total time spent with greater than 50% in coordination of care (as documented) at patient's floor/unit and/or counseling patient:: 25 - 35 minutes QUALITY VTE Deep Vein Thrombosis/Pulmonary Embolism Present on Admission: No
[2022-05-18] MEDS: VANCOMYCIN 1,500 MG in 0.9 % SODIUM CHLORIDE 500 ML IV SCH ×2 (09:35→15:37)
--- NOTE | 2022-05-18 09:42 | Urology Progress Note ---
SUBJECTIVE Subjective Patient information: Note initiated : 05/18/22 at 9:40 am Service Date, if different from initiated Date: [] Patient: Thomas Brown 41 y/o M admitted on 05/17/22 for Ultrasound. Chief Complaint: [Scrotal swelling and pain] Principal diagnosis: Scrotal abscess Interval history: Patient states he has had no significant change since yesterday at time of admission. He denies fevers, chills, nausea or vomiting. He states the pain is unchanged. He denies any night sweats. Pertinent ROS: No chest pain But shortness of breath No abdominal pain No rectal pain muddy cranberry juice all right. No thank you Constitutional Vitals: Vital Signs Temp Pulse Resp BP Pulse Ox O2 Del Method 96.8 F L 80 18 146/96 96 05/18/22 08:00 05/18/22 08:00 05/18/22 08:00 05/18/22 08:00 05/18/22 08:00 05/18/22 08:00 Period Temp Pulse Resp BP Sys/Cheney Pulse Ox O2 Del Method O2 Flow Rate Last 24 Hr 96.8 F-98.6 F 71-96 16-18 117-160/57-117 94-99 Room Air-Room Air, CPAP Intake and Output 05/17/22 05/18/22 05/18/22 19:59 03:59 11:59 Intake Total 50 50 2800 Output Total 850 Balance 50 50 1950 Weight 174.179 kg 179.441 kg Intake & Output: Intake & Output 05/17/22 05/18/22 05/18/22 19:59 03:59 11:59 Intake Total 50 50 2800 Output Total 850 Balance 50 50 1950 Weight 174.179 kg 179.441 kg Intake: IV 50 50 1600 Sodium Chloride 0.9% 1,000 ml @ 1000 Wide Open IV BOLUS ONE Rx#: [id number] Merrem 1 gm In Sodium Chloride 50 50 0.9% 50 ml @ 100 mls/hr IV Q8H [facility] Rx#:[id number] Vancomycin 2,000 mg In Sodium 500 Chloride 0.9% 500 ml @ 250 mls/ hr IV ONCE ONE Rx#:[id number] Oral 1200 Output: Void Amount 850 Other: Urine Appearance Clear Clear Urine Color Dark Yellow Yellow Urine Odor Normal Normal General appearance: cooperative and obese GI/Abdominal GI/Abdominal exam: Present soft; Absent tenderness Additional comments: The left posterior scrotum is still indurated with mild erythema, small amount of drainage noted. Testicles normal bilaterally. Induration does not track into the groin or perirectal area Neurological Exam Neurological exam: Present alert, normal gait and oriented X3 Additional findings Additional findings: Labs noted A/P Assessment and plan (1) Cellulitis, scrotum: Status: Acute (2) Scrotal abscess: Status: Acute Sepsis Sepsis Identified: No Narrative A/P Narrative: Patient was cellulitis and localized posterior left scrotal abscess, now with a small amount of drainage Patient, and I discussed options we have decided that we will try to aspirate the abscess Area was cleaned with Betadine, overlying skin was injected with 1% lidocaine, an 18-gauge needle was used to aspirate in approximately 5 cc of purulent material was obtained, Material was sent for culture. At this time I further discussed with the patient and his bedside incision and drainage, they agreed to proceed. A 15 blade was used to open the aspiration site approximately 2 cm and further drainage was obtained. The opening was then probed with a sterile Q-tip and loculations were broken. Wound was then packed with gauze dry dressing was applied. I would recommend awaiting culture results, continuing with wound care as ordered. Continue to follow laboratory work and vital signs. I will continue to follow the patient as well. Time Spent With Patient Time: Total time spent is greater than 50% in coordination of care (as documented) at patient's floor/unit and/or counseling patient:
[2022-05-18] MEDS: traMADol 50 MG TABLET PO PRN ×3 (10:07→21:48)
[2022-05-19] MEDS: CLINDAMYCIN IN 0.9 % SOD CHLOR 600 MG/50 ML BAG IV SCH ×3 (05:23→21:41)
[2022-05-19] MEDS: traMADol 50 MG TABLET PO PRN ×2 (05:24→21:40)
[2022-05-19] MEDS: MEROPENEM 1 GM in 0.9 % SODIUM CHLORIDE 50 ML IV SCH ×3 (06:03→21:42)
[2022-05-19 06:28] LABS: Basophils # (Auto) 0.06 K/mcL (0.00-0.30); Basophils % (Auto) 0.9 % (0.0-2.0); Eosinophils # (Auto) 0.22 K/mcL (0.00-0.70); Eosinophils % (Auto) 3.2 % (0.0-7.0); Hemoglobin 14.6 g/dL (13.7-17.5); Lymphocytes # (Auto) 2.63 K/mcL (1.50-4.80); Lymphocytes % (Auto) 38.1 % (15.5-49.0); Mean Cell Volume 89.7 fL (80.0-100.0); Mean Corpuscular HGB Conc 31.7 g/dL (31.0-36.0); Mean Platelet Volume 9.6 fL (8.8-12.5); Monocytes # (Auto) 0.55 K/mcL (0.10-0.90); Neutrophils % (Auto) 49.5 % (38.0-78.0); Platelet Count 275 K/mcL (140-440); RBC 5.13 M/mcL (4.63-6.08); Red Cell Distribution Width 13.2 % (11.5-14.5); WBC 6.9 K/mcL (4.5-11.0)
[2022-05-19] MEDS: 0.9 % SODIUM CHLORIDE 10 ML SYRINGE IV SCH ×3 (06:38→21:43)
[2022-05-19 06:56] LABS: Blood Urea Nitrogen 11 mg/dL (6-20); Calcium 8.5 mg/dL (8.6-10.4); Carbon Dioxide 27 mmol/L (22-30); Chloride 104 mmol/L (96-108); Glomerular Filtration Rate 109; Glucose 89 mg/dL (70-105)
--- NOTE | 2022-05-19 07:42 | Urology Progress Note ---
SUBJECTIVE Subjective Patient information: Note initiated : 05/19/22 at 7:37 am Service Date, if different from initiated Date: [] Patient: Thomas Brown 41 y/o M admitted on 05/17/22 for Ultrasound. Chief Complaint: [Scrotal swelling and erythema] Principal diagnosis: Scrotal abscess Interval history: Patient states he actually feels significantly better this morning. He has less pain this morning. Patient states he is more comfortable, he has had no fevers or chills, nausea or vomiting, abdominal pain. Pertinent ROS: Patient denies night sweats Patient denies chest pain Patient denies shortness of breath Patient denies dysuria, frequency or urgency Constitutional Vitals: Vital Signs Temp Pulse Resp BP Pulse Ox O2 Del Method 98.5 F 66 18 132/82 96 05/19/22 04:00 05/19/22 04:00 05/19/22 04:00 05/19/22 04:00 05/19/22 04:00 05/19/22 04:00 Period Temp Pulse Resp BP Sys/Cheney Pulse Ox O2 Del Method O2 Flow Rate Last 24 Hr 96.8 F-98.7 F 66-80 15-18 129-146/77-96 90-97 CPAP-Room Air, CPAP Intake and Output 05/18/22 05/19/22 05/19/22 19:59 03:59 11:59 Intake Total 1900 100 500 Output Total 1050 1200 900 Balance 850 -1100 -400 Weight 181.346 kg Intake & Output: Intake & Output 05/18/22 05/19/22 05/19/22 19:59 03:59 11:59 Intake Total 1900 100 500 Output Total 1050 1200 900 Balance 850 -1100 -400 Weight 181.346 kg Intake: IV 1100 100 50 Merrem 1 gm In Sodium Chloride 50 50 0.9% 50 ml @ 100 mls/hr IV Q8H [facility] Rx#:[id number] Vancomycin 1,500 mg In Sodium 1000 Chloride 0.9% 500 ml @ 333.3 mls/hr IV Q8H [facility] Rx#:[id number] Oral 800 450 Output: Urine Catheter Amount 400 Void Amount 1050 1200 500 Other: Meal Lunch Dinner Percent of Meal Consumed 100% 100% Feeding Ability Independent Urine Appearance Clear Clear Clear Urine Color Yellow Yellow Yellow Urine Odor Normal Normal Normal General appearance: morbidly obese and no acute distress GI/Abdominal GI/Abdominal exam: Present soft; Absent mass, rebound, rigid or tenderness Additional comments: Significantly less scrotal erythema and edema, bilateral testicles normal, bilateral epididymis normal, I&D incision clean with packing in place. There is much less induration. No extension of the induration or erythema to the perineum or inguinal canal area Extremities Exam Extremities exam: Absent calf tenderness Neurological Exam Neurological exam: Present alert and altered Psychiatric Psychiatric exam: Present normal mood Additional findings Additional findings: White count has decreased to 6.9. Wound culture pending A/P Assessment and plan (1) Scrotal abscess: Status: Acute Plan Patient continues to show improvement on IV antibiotics and status post incision and drainage of his localized scrotal abscess. His cultures are pending. I would recommend we continue his antibiotics and wound care. We will get a wound care clinic consultation. Plan discussed in detail with the patient, his questions were answered, patient is pleased with his continued improvement. Time Spent With Patient Time: Total time spent is greater than 50% in coordination of care (as documented) at patient's floor/unit and/or counseling patient:
[2022-05-19] MEDS: HEPARIN 5,000 UNIT/ML VIAL SQ SCH ×2 (09:18→21:42)
[2022-05-19] MEDS: DOCUSATE SODIUM 100 MG CAPSULE PO SCH ×2 (09:18→21:27)
--- NOTE | 2022-05-19 11:07 | Internal Med Progress Note ---
SUBJECTIVE Subjective Patient information: Note initiated : 05/19/22 at 11:05 am Service Date, if different from initiated Date: [] Patient: Thomas Brown 41 y/o M admitted on 05/17/22 for Infection, Cyst/Ultrasound. Chief Complaint: [Scrotal pain] Principal diagnosis: Scrotal abscess Interval history: The patient was resting comfortably in bed while eating breakfast and was on his laptop. He had no active complaints or concerns. Constitutional Vitals: Vital Signs Temp Pulse Resp BP Pulse Ox O2 Del Method 97.1 F 67 20 129/80 94 05/19/22 08:00 05/19/22 08:00 05/19/22 08:00 05/19/22 08:00 05/19/22 08:00 05/19/22 08:00 Period Temp Pulse Resp BP Sys/Cheney Pulse Ox O2 Del Method O2 Flow Rate Last 24 Hr 97.1 F-98.7 F 66-77 15-20 129-144/77-89 90-97 Room Air-Room Air, CPAP Intake and Output 05/18/22 05/19/22 05/19/22 19:59 03:59 11:59 Intake Total 1900 100 500 Output Total 1050 1200 900 Balance 850 -1100 -400 Weight 181.346 kg Intake & Output: Intake & Output 05/18/22 05/19/22 05/19/22 19:59 03:59 11:59 Intake Total 1900 100 500 Output Total 1050 1200 900 Balance 850 -1100 -400 Weight 181.346 kg Intake: IV 1100 100 50 Merrem 1 gm In Sodium Chloride 50 50 0.9% 50 ml @ 100 mls/hr IV Q8H [facility] Rx#:[id number] Vancomycin 1,500 mg In Sodium 1000 Chloride 0.9% 500 ml @ 333.3 mls/hr IV Q8H [facility] Rx#:[id number] Oral 800 450 Output: Urine Catheter Amount 400 Void Amount 1050 1200 500 Other: Meal Lunch Dinner Percent of Meal Consumed 100% 100% Feeding Ability Independent Urine Appearance Clear Clear Clear Urine Color Yellow Yellow Yellow Urine Odor Normal Normal Normal Head Head exam: Present atraumatic and normal inspection Eye Eye exam: Present normal appearance ENT ENT exam: Present mucous membranes moist, normal exam and normal external ear exam Neck Neck exam: Present normal inspection Respiratory Respiratory exam: Present normal respiratory exam Cardiovascular Cardiovascular exam: Present normal rate and rhythm GI/Abdominal GI/Abdominal exam: Present normal bowel sounds Back Exam Back exam: Present normal inspection Neurological Exam Neurological exam: Present alert and oriented X3 Skin Skin exam: Present intact and warm OBJ DATA Labs CBC & Chem 7: 05/19/22 05:14 05/19/22 05:14 Labs: Abnormal Lab Results 05/19/22 05/18/22 05/17/22 05:14 05:16 16:21 POC VBG pO2 POC VBG HCO3 POC VBG Total CO2 POC Venous O2 Sat POC VBG Base Excess Anion Gap 7.0 L Calcium 8.5 L 8.5 L POC WB Ioniz Calcium 1.15 L 05/17/22 16:21 POC VBG pO2 22 L POC VBG HCO3 28.8 H POC VBG Total CO2 30.0 H POC Venous O2 Sat 36.0 L POC VBG Base Excess 4.0 H* Anion Gap Calcium POC WB Ioniz Calcium Meds: Medications Acetaminophen (Acetaminophen 325 Mg Tablet) 650 mg PO Q6HP PRN; Protocol PRN Reason: Per Pain Protocol/Fever > 101 Last Admin: 05/18/22 04:47 Dose: 650 mg Docusate Sodium (Docusate Sodium 100 Mg Capsule) 100 mg PO BID [facility] Last Admin: 05/19/22 09:18 Dose: 100 mg Heparin Sodium (Porcine) (Heparin 5,000 Unit/Ml Vial) 5,000 unit SQ Q12 [facility] Last Admin: 05/19/22 09:18 Dose: 5,000 unit Potassium Chloride 40 meq/ (Dextrose) 520 mls @ 130 mls/hr IV UD PRN PRN Reason: Potassium < 3 Magnesium Sulfate (Magnesium Sulfate) 2 gm in 50 mls @ 50 mls/hr IV UD PRN PRN Reason: Magnesium </= 1.6 Meropenem 1 gm/ Sodium (Chloride) 50 mls @ 100 mls/hr IV Q8H [facility]; Protocol Last Admin: 05/19/22 06:03 Dose: 100 mls/hr CLINDAMYCIN IN 0.9 % SOD CHLOR (Clindamycin 600 Mg/50 Ml-Ns) 600 mg in 50 mls @ 100 mls/hr IV Q8H [facility] Last Infusion: 05/19/22 06:32 Dose: Infused Ondansetron HCl (Ondansetron 4 Mg/2 Ml Vial) 4 mg IV Q4HP PRN PRN Reason: Nausea And Vomiting Polyethylene Glycol (Polyethylene Glycol 3350 17 Gm Packet) 17 gm PO DAILYP PRN PRN Reason: Constipation Potassium Chloride (Potassium Chloride 20 Meq Tablet) 40 meq PO UD PRN PRN Reason: Potssium is 3-3.5 Potassium Chloride (Potassium Chloride 20 Meq Tablet) 40 meq PO UD PRN PRN Reason: Potassium < 3 Senna (Sennosides 1 Tablet) 2 tab PO DAILYP PRN PRN Reason: Constipation Sodium Chloride (0.9 % Sodium Chloride 10 Ml Syringe) 10 ml IV Q8 [facility] Last Admin: 05/19/22 06:38 Dose: 10 ml Tramadol HCl (Tramadol 50 Mg Tablet) 50 mg PO Q4-6HP PRN; Protocol PRN Reason: Pain Last Admin: 05/19/22 05:24 Dose: 50 mg A/P Narrative A/P Narrative: A: *Scrotal abscess/cellulitis and early ?Marnie's: * *Morbid obesity: BMI 52, Patient scheduled for bariatric surgery in the next couple months *TATUM on CPAP: P: -It is unlikely necrotizing fasciitis and this likely a scrotal abscess that was drained by urology at bedside. Wound cultures are pending. He will remain in the hospital until cultures are finalized to assess whether he needs parenteral antibiotics versus oral. Source control has been achieved and will likely continue antibiotics for total of 2 weeks with close outpatient follow-up. Infectious disease referral may be beneficial as well. -merrem/vanco/clinda, mrsa screen neg -BC pending -monitor vitals/labs -Dr. Trevino following -home cpap -ppx: heparin Time Spent With Patient Time: Total time spent is greater than 50% in coordination of care (as documented) at patient's floor/unit and/or counseling patient: QUALITY VTE Deep Vein Thrombosis/Pulmonary Embolism Present on Admission: No
[2022-05-20] MEDS: MEROPENEM 1 GM in 0.9 % SODIUM CHLORIDE 50 ML IV SCH ×3 (04:54→22:12)
[2022-05-20] MEDS: CLINDAMYCIN IN 0.9 % SOD CHLOR 600 MG/50 ML BAG IV SCH ×3 (04:54→22:12)
[2022-05-20] MEDS: 0.9 % SODIUM CHLORIDE 10 ML SYRINGE IV SCH ×4 (04:55→22:12)
[2022-05-20] MEDS: HEPARIN 5,000 UNIT/ML VIAL SQ SCH ×2 (09:51→22:12)
[2022-05-20] MEDS: DOCUSATE SODIUM 100 MG CAPSULE PO SCH ×2 (09:53→22:12)
--- NOTE | 2022-05-20 09:58 | Internal Med Progress Note ---
SUBJECTIVE Subjective Patient information: Note initiated : 05/20/22 at 9:56 am Service Date, if different from initiated Date: [] Patient: Thomas Brown 41 y/o M admitted on 05/17/22 for Infection, Cyst/Ultrasound. Chief Complaint: [Scrotal pain] Principal diagnosis: Scrotal abscess Interval history: The patient was resting comfortably in bed while eating breakfast and was on his laptop. He had no active complaints or concerns. Constitutional Vitals: Vital Signs Temp Pulse Resp BP Pulse Ox O2 Del Method 97.9 F 62 20 123/79 95 05/20/22 08:00 05/20/22 08:00 05/20/22 08:00 05/20/22 08:00 05/20/22 08:00 05/20/22 08:00 Period Temp Pulse Resp BP Sys/Cheney Pulse Ox O2 Del Method O2 Flow Rate Last 24 Hr 96.7 F-98.3 F 55-72 16-20 116-150/62-94 94-96 CPAP-Room Air, CPAP Intake and Output 05/19/22 05/20/22 05/20/22 19:59 03:59 11:59 Intake Total 640 1100 100 Output Total 1200 1150 Balance -560 -50 100 Weight 180.484 kg Intake & Output: Intake & Output 05/19/22 05/20/22 05/20/22 19:59 03:59 11:59 Intake Total 640 1100 100 Output Total 1200 1150 Balance -560 -50 100 Weight 180.484 kg Intake: IV 100 100 100 Merrem 1 gm In Sodium Chloride 50 50 50 0.9% 50 ml @ 100 mls/hr IV Q8H [facility] Rx#:[id number] Oral 540 1000 Output: Void Amount 1200 1150 Other: Meal Lunch HS Snack Percent of Meal Consumed 100% 100% Feeding Ability Assist with Tray Set Up Independent Urine Appearance Clear Clear Urine Color Yellow Yellow Urine Odor Normal Stool Size Large Large Stool Color Brown Stool Consistency Soft Soft # Bowel Movements 1 1 Head Head exam: Present atraumatic and normal inspection Eye Eye exam: Present normal appearance ENT ENT exam: Present mucous membranes moist, normal exam and normal external ear exam Neck Neck exam: Present normal inspection Respiratory Respiratory exam: Present normal respiratory exam Cardiovascular Cardiovascular exam: Present normal rate and rhythm GI/Abdominal GI/Abdominal exam: Present normal bowel sounds Back Exam Back exam: Present normal inspection Neurological Exam Neurological exam: Present alert and oriented X3 Skin Skin exam: Present intact and warm OBJ DATA Labs CBC & Chem 7: 05/19/22 05:14 05/19/22 05:14 Labs: Abnormal Lab Results 05/19/22 05/18/22 05/17/22 05:14 05:16 16:21 POC VBG pO2 POC VBG HCO3 POC VBG Total CO2 POC Venous O2 Sat POC VBG Base Excess Anion Gap 7.0 L Calcium 8.5 L 8.5 L POC WB Ioniz Calcium 1.15 L 05/17/22 16:21 POC VBG pO2 22 L POC VBG HCO3 28.8 H POC VBG Total CO2 30.0 H POC Venous O2 Sat 36.0 L POC VBG Base Excess 4.0 H* Anion Gap Calcium POC WB Ioniz Calcium Meds: Medications Acetaminophen (Acetaminophen 325 Mg Tablet) 650 mg PO Q6HP PRN; Protocol PRN Reason: Per Pain Protocol/Fever > 101 Last Admin: 05/18/22 04:47 Dose: 650 mg Docusate Sodium (Docusate Sodium 100 Mg Capsule) 100 mg PO BID [facility] Last Admin: 05/20/22 09:53 Dose: Not Given Heparin Sodium (Porcine) (Heparin 5,000 Unit/Ml Vial) 5,000 unit SQ Q12 [facility] Last Admin: 05/20/22 09:51 Dose: 5,000 unit Potassium Chloride 40 meq/ (Dextrose) 520 mls @ 130 mls/hr IV UD PRN PRN Reason: Potassium < 3 Magnesium Sulfate (Magnesium Sulfate) 2 gm in 50 mls @ 50 mls/hr IV UD PRN PRN Reason: Magnesium </= 1.6 Meropenem 1 gm/ Sodium (Chloride) 50 mls @ 100 mls/hr IV Q8H [facility]; Protocol Last Infusion: 05/20/22 05:25 Dose: Infused CLINDAMYCIN IN 0.9 % SOD CHLOR (Clindamycin 600 Mg/50 Ml-Ns) 600 mg in 50 mls @ 100 mls/hr IV Q8H [facility] Last Infusion: 05/20/22 05:25 Dose: Infused Ondansetron HCl (Ondansetron 4 Mg/2 Ml Vial) 4 mg IV Q4HP PRN PRN Reason: Nausea And Vomiting Polyethylene Glycol (Polyethylene Glycol 3350 17 Gm Packet) 17 gm PO DAILYP PRN PRN Reason: Constipation Potassium Chloride (Potassium Chloride 20 Meq Tablet) 40 meq PO UD PRN PRN Reason: Potssium is 3-3.5 Potassium Chloride (Potassium Chloride 20 Meq Tablet) 40 meq PO UD PRN PRN Reason: Potassium < 3 Senna (Sennosides 1 Tablet) 2 tab PO DAILYP PRN PRN Reason: Constipation Sodium Chloride (0.9 % Sodium Chloride 10 Ml Syringe) 10 ml IV Q8 JAMES Last Admin: 05/20/22 04:55 Dose: 10 ml Tramadol HCl (Tramadol 50 Mg Tablet) 50 mg PO Q4-6HP PRN; Protocol PRN Reason: Pain Last Admin: 05/19/22 21:40 Dose: 50 mg A/P Narrative A/P Narrative: A: *Scrotal abscess/cellulitis and early ?Marnie's: * *Morbid obesity: BMI 52, Patient scheduled for bariatric surgery in the next couple months *TATUM on CPAP: P: -It is unlikely necrotizing fasciitis and this likely a scrotal abscess that was drained by urology at bedside. Wound cultures are pending. He will remain in the hospital until cultures are finalized to assess whether he needs parenteral antibiotics versus oral. Source control has been achieved and will likely continue antibiotics for total of 2 weeks with close outpatient follow-up. Infectious disease referral may be beneficial as well. -merrem/vanco/clinda, mrsa screen neg -BC NGTD, abscess cx to be finalized for speciation and sensitivity -monitor vitals/labs -Dr. Trevino following -home cpap -ppx: heparin Time Spent With Patient Time: Total time spent is greater than 50% in coordination of care (as documented) at patient's floor/unit and/or counseling patient: Subsequent: Total time with patient: 25 - 34 minutes QUALITY VTE Deep Vein Thrombosis/Pulmonary Embolism Present on Admission: No
--- NOTE | 2022-05-20 12:29 | Urology Progress Note ---
SUBJECTIVE Subjective Patient information: Note initiated : 05/20/22 at 12:26 pm Service Date, if different from initiated Date: [] Patient: Thomas Brown 41 y/o M admitted on 05/17/22 for Infection, Cyst/Ultrasound. Chief Complaint: [Scrotal swelling and pain] Principal diagnosis: Scrotal abscess Interval history: Patient continues to do well. He denies any significant changes. He has had no pain, fevers or chills Pertinent ROS: No fevers or chills No nausea or vomiting No chest pains or palpitations No shortness of breath or cough Constitutional Vitals: Vital Signs Temp Pulse Resp BP Pulse Ox O2 Del Method 96.9 F L 73 20 134/92 95 05/20/22 11:51 05/20/22 11:51 05/20/22 11:51 05/20/22 11:51 05/20/22 11:51 05/20/22 11:51 Period Temp Pulse Resp BP Sys/Cheney Pulse Ox O2 Del Method O2 Flow Rate Last 24 Hr 96.7 F-98.3 F 62-73 16-20 123-150/79-94 95-96 CPAP-Room Air, CPAP Intake and Output 05/20/22 05/20/22 05/20/22 03:59 11:59 19:59 Intake Total 1100 550 Output Total 1150 600 Balance -50 -50 Intake & Output: Intake & Output 05/20/22 05/20/22 05/20/22 03:59 11:59 19:59 Intake Total 1100 550 Output Total 1150 600 Balance -50 -50 Intake: IV 100 100 Merrem 1 gm In Sodium Chloride 50 50 0.9% 50 ml @ 100 mls/hr IV Q8H [facility] Rx#:[id number] Oral 1000 450 Output: Void Amount 1150 600 Other: Meal HS Snack Breakfast Percent of Meal Consumed 100% 100% Feeding Ability Independent Assist with Tray Set Up Urine Appearance Clear Urine Color Yellow Dark Yellow Urine Odor Strong Stool Size Large Stool Color Brown Stool Consistency Soft # Bowel Movements 1 General appearance: obese GI/Abdominal GI/Abdominal exam: Present soft; Absent tenderness Additional comments: No significant change. Wound care nurse notes that the depth of the abscess that is decreasing significantly, minimal drainage Additional findings Additional findings: Culture is still pending A/P Assessment and plan (1) Scrotal abscess: Assessment and plan: 41-year-old gentleman with a scrotal abscess status post incision and drainage. Patient is clinically doing well. Cultures are still pending. Continue with wound care. has been instructed on wound care at home. Status: Acute Time Spent With Patient Time: Total time spent is greater than 50% in coordination of care (as documented) at patient's floor/unit and/or counseling patient:
[2022-05-21] MEDS: CLINDAMYCIN IN 0.9 % SOD CHLOR 600 MG/50 ML BAG IV SCH ×2 (05:09→13:47)
[2022-05-21] MEDS: MEROPENEM 1 GM in 0.9 % SODIUM CHLORIDE 50 ML IV SCH ×2 (05:09→14:20)
[2022-05-21] MEDS: 0.9 % SODIUM CHLORIDE 10 ML SYRINGE IV SCH ×2 (05:09→15:33)
[2022-05-21] MEDS: HEPARIN 5,000 UNIT/ML VIAL SQ SCH (09:38)
[2022-05-21] MEDS: DOCUSATE SODIUM 100 MG CAPSULE PO SCH (09:42)
--- NOTE | 2022-05-21 11:07 | Discharge Summary ---
Discharge Provider Provider IMPORTANT FOLLOW-UP INFORMATION FOR PCP: 1. Continue outpatient wound care 2. F/u with ID 3. F/u with PCP and urology Patient information: Note initiated : 05/21/22 at 11:04 am Service Date, if different from initiated Date: [] Patient: Thomas Brown 41 y/o M admitted on 05/17/22 for Infection, Cyst/Ultrasound. Chief Complaint: [Scrotal abscess] Date of admission: 05/17/22 22:03 Discharge date: 05/21/22 Primary care physician: Siddharth Muhammad MD Consults: 05/17/22 Consult to Physician [CONS] Stat Comment: Consulting Provider: Moo Steve Reason For Exam: Physician to Consult Attending physician on discharge: Eleonora Hurd COURSE Hospital Course Hospital course: A/P Narrative: A: *Scrotal abscess/cellulitis and early ?Marnie's: * *Morbid obesity: BMI 52, Patient scheduled for bariatric surgery in the next couple months *TATUM on CPAP: P: -The patient's wound cultures revealed actinomyces and he will be transition to Augmentin for 2 weeks. -It is unlikely necrotizing fasciitis and this likely a scrotal abscess that was drained by urology at bedside. Wound cultures are pending. He will remain in the hospital until cultures are finalized to assess whether he needs parenteral antibiotics versus oral. Source control has been achieved and will likely continue antibiotics for total of 2 weeks with close outpatient follow-up. Infectious disease referral may be beneficial as well. -merrem/vanco/clinda, mrsa screen neg -BC NGTD, abscess cx to be finalized for speciation and sensitivity -monitor vitals/labs -Dr. Trevino following -home cpap -ppx: heparin Discharge diagnosis: Scrotal abscess Time Spent with Patient Time attestation: Total time spent providing and/or coordinating discharge services: Time spent: Greater than 30 minutes EXAM Constitutional Vitals: Temp Pulse Resp BP Pulse Ox O2 Del Method 97.5 F 62 20 126/75 95 05/21/22 07:51 05/21/22 07:51 05/21/22 07:51 05/21/22 07:51 05/21/22 07:51 05/21/22 07:51 General appearance: average body habitus Head Head exam: Present atraumatic, normal inspection and normocephalic Eye Eye exam: Present EOMI, normal appearance and PERRL; Absent conjunctival injection ENT ENT exam: Present normal exam; Absent mucous membranes dry Neck Neck exam: Present full ROM; Absent lymphadenopathy Respiratory Respiratory exam: Present normal respiratory exam and CTAB; Absent decreased breath sounds, respiratory distress or wheezes Cardiovascular Cardiovascular exam: Present normal rate and rhythm and RRR; Absent JVD GI/Abdominal GI/Abdominal exam: Present normal bowel sounds and soft; Absent diminished bowel sounds, distended, guarding, mass, rebound or tenderness Neurological Exam Neurological exam: Present alert, CN II-XII intact and oriented X3 Psychiatric Psychiatric exam: Present normal affect and normal mood Skin Skin exam: Present intact and warm; Absent erythema, pallor, petechiae or rash Discharge Plan Patient/Caregiver Discharge Instructions Activity: resume usual activities as tolerated Instructions: Acute Wound Care (DC) Prescriptions: New amoxicillin-pot clavulanate 875-125 mg tablet 1 tab PO BID 14 Days Qty: 28 0RF Continued methylphenidate HCl 40 mg cap,ER sprinkle,biphasic 40-60 40 mg PO QAM Qty: 30 0RF No Action (DME) CPAP supplies-mask, hosing, headgear See Rx Instructions .Route .MEDSUPPLY Qty: 1 0RF Rx Instructions: As directed Follow Up Plan Follow up with: Siddharth Muhammad MD [Primary Care Provider] - Patient Disposition: Home, Self-Care I certify that the patient requires SNF services: No Overall status at discharge: patient is progressing back to baseline Discharge Orders: Discharge Order (Routine); Ordered 05/21/22 Ordered By: Eleonora JOHNSTON VTE Deep Vein Thrombosis/Pulmonary Embolism Present on Admission: No
== END 2022-05-21 15:05 | disposition home or self-care (01) | DRG 728 ==
LOC: ED 15:37 → MEDSUR 22:03
PROVIDERS: ADMIT Internal Medicine; ATTEND Student in an Organized Health Care Education/Training Program